=== PATIENT | female | born 1995 | race Caucasian/White ===

== ENCOUNTER 2017-08-19 09:38 | Emergency (ER) | payer OTHER ==
[~2017-08-19] VITALS: Ht 172.7 cm; Wt 101.6 kg
[2017-08-19] MEDS ORDERED: DOXYCYCLINE HY100 MG PO (09:49)
[2017-08-19] MEDS ORDERED: FAMOTIDINE 20 MG/2 ML VIAL IV STA (10:07)
[2017-08-19] MEDS ORDERED: DICYCLOMINE HCL 20 MG TAB PO ONE (10:15)
[2017-08-19] MEDS ORDERED: MAGNESIUM/ALUMINUM/SIMETHICONE 30 ML UDC PO ONE (10:15)
[2017-08-19 10:18] LABS: ALANINE AMINOTRANSFERASE 17 IU/L (0-55); ALBUMIN 3.3 g/dL (3.5-5.0); ALKALINE PHOSPHATASE 58 IU/L (40-150); ANION GAP 12.5 mmol/L (8-16); BLOOD UREA NITROGEN 8 mg/dL (7-26); BUN/CREATININE RATIO 11 (6-25); CALCIUM 9.2 mg/dL (8.4-10.2); CARBON DIOXIDE 28 mmol/L (22-29); CHLORIDE 105 mmol/L (98-107); CREATININE, SERUM 0.71 mg/dL (0.57-1.11); EST GLOMERULAR FILTRATION RATE > 60 ML/MIN (60-); GLUCOSE 91 mg/dL (74-118); POTASSIUM 3.5 mmol/L (3.5-5.1); SODIUM 142 mmol/L (136-145)
--- NOTE | 2017-08-19 11:19 | Diagnostic Imaging Report ---
PROCEDURE: Frontal and lateral views of the chest. COMPARISON: None. INDICATIONS: MID CHEST PAIN/PRESSURE. FINDINGS: Lines/tubes: None. Lungs: The lungs are well inflated and clear. There is no evidence of pneumonia or pulmonary edema. Pleura: There is no pleural effusion or pneumothorax. Heart and mediastinum: The heart and the mediastinum are normal. Bones: No acute bony abnormality. IMPRESSION: No acute cardiopulmonary disease. Dictated by: Clint Estrada M.D. on 08/19/2017 at 11:21 Electronically approved by: Clint Estrada M.D. on 08/19/2017 at 11:21
[2017-08-19] MEDS ORDERED: KETOROLAC TROMETHAMINE 30 MG/ML VIAL IV STA (11:31)
--- NOTE | 2017-08-19 13:28 | Diagnostic Imaging Report ---
PROCEDURE:CT CHEST WITH CONTRAST COMPARISON:None. INDICATIONS:Chest pain. TECHNIQUE: Pulmonary embolism protocol Volumetric CT chest after ministration of 60 mL Isovue-370 intravenous contrast. Multiplanar reformatted images. DLP: 529.54 FINDINGS: Lungs: Normal Airways: Normal Pleura: Normal Lymph nodes: Normal Pulmonary arteries: Normal caliber. No filling defects. Thoracic aorta and great vessels: Normal caliber. Heart and pericardium: Normal Subdiaphragmatic organs: Normal. Cholecystectomy. Skeleton: Intact. Soft tissues: Normal CONCLUSION: Normal CT chest. No evidence of pulmonary embolism. Dictated by: Mark Nugent M.D. on 08/19/2017 at 13:30 Electronically approved by: Mark Nugent M.D. on 08/19/2017 at 13:30
[2017-08-19 13:58] VITALS: BP 126/83
[2017-08-19] MEDS ORDERED: SODIUM CHLORIDE 0.9% 50ML 50 ML ONE (17:10)
[2017-08-19] MEDS ORDERED: IOPAMIDOL 370 MG/ML 200 ML INFUS..BTL INJ ONE (17:10)
== END 2017-08-19 14:05 | disposition home or self-care (01) ==
LOC: ER 09:38
DX: R07.89 Other chest pain (principal); R11.0 Nausea; M94.0 Chondrocostal junction syndrome [Tietze]; K21.0 Gastro-esophageal reflux disease with esophagitis; F17.210 Nicotine dependence, cigarettes, uncomplicated
CPT/HCPCS: 36415; 71046; 71260; 80053; 81025; 84484; 85379; 93005; 99284; J1885; Q9967

== ENCOUNTER 2021-10-13 20:20 | Emergency (ER) | payer SELFPAY ==
[~2021-10-13] VITALS: Ht 172.7 cm; Wt 101.6 kg
[~2021-10-13 20:20] MED LIST: DOXYCYCLINE HY100 MG PO
== END 2021-10-13 21:40 | disposition home or self-care (01) ==
LOC: ER 20:39
DX: R05.9 Cough, unspecified (principal); U07.1 COVID-19; J45.909 Unspecified asthma, uncomplicated
CPT/HCPCS: 83518; 87070; 99282; U0002